=== PATIENT | male | born 1985 | race African-American/Black ===

== ENCOUNTER 2019-08-26 16:05 | Emergency (ER) | payer OTHER ==
[~2019-08-26] VITALS: Ht 177.8 cm; Wt 81.6 kg
[2019-08-26 16:05] VITALS: BP_SYST 128
[2019-08-26] MEDS ORDERED: LORazepam 2 MG/ML VIAL IM ONE (16:45)
[2019-08-26 17:55] VITALS: BP_SYST 128
== END 2019-08-26 17:55 | disposition home or self-care (01) ==
LOC: SED 16:05
DX: R06.4 Hyperventilation (principal); F41.9 Anxiety disorder, unspecified; F12.90 Cannabis use, unspecified, uncomplicated
CPT/HCPCS: 96372; 99283; J2060